=== PATIENT | female | born 1970 | race Caucasian/White ===

== ENCOUNTER → 2024-04-12 | Outpatient (CLI) | payer OTHER, SELFPAY ==
[2024-04-12 08:35] LABS: Alanine Aminotransferase 18 U/L (10-49); Albumin, Serum 4.2 gm/dL (3.5-5.0); Alkaline Phosphatase 98 U/L (46-116); Anion Gap 7 (7-16); Aspartate Amino Transferase 13 U/L (0-34); BUN/Creatinine Ratio 14 Ratio (12-20); Bilirubin,Direct 0.1 mg/dL (0.0-0.3); Bilirubin,Total 0.3 mg/dL (0.3-1.2); Blood Urea Nitrogen 15 mg/dL (9-23); Calcium 9.2 mg/dL (8.3-10.6); Carbon Dioxide 32.7 mMol/L (20.0-31.0); Cardiac Risk Estimate 3.2 RATIO (3.7-5.6); Chloride 101 mMol/L (98-107); Cholesterol 197 mg/dL (132-200); Creatinine (Component) 1.1 mg/dL (0.6-1.3); Ferritin 7 ng/mL (7.3-270.7); Glucose 129 mg/dL (74-106); HDL Cholesterol 61 mg/dL (40-60); LDL Cholesterol,Calculated 101 mg/dL (0-130); Osmolality,Calculated 284 (275-295); Phosphorous 4.1 mg/dL (2.4-5.1); Potassium 4.1 mMol/L (3.4-5.1); Sodium 141 mMol/L (136-145); Thyroid Stimulating Hormone 6.74 uIU/mL (0.55-4.78); Total Protein 6.3 gm/dL (5.7-8.2); Triglycerides 173 mg/dL (30-150); eGFR 60 See Note
[2024-04-12 08:50] LABS: Glucose Estimated Average 148 mg/dL (80-131); Hemoglobin A1C 6.8 % Hgb (4.8-6.0)
[2024-04-12 09:12] LABS: Basophils # (Auto) 0.1 Thou/mm3 (0.0-0.2); Basophils % (Auto) 1 % (0-2.5); Eosinophils # (Auto) 0.1 Thou/mm3 (0.0-0.5); Eosinophils % (Auto) 1 % (0-10); Hematocrit 43.1 % (36.0-46.0); Hemoglobin 13.8 g/dL (12.0-16.0); Immature Granulocytes % (Auto) 1 % (0-0); Immature Granulocytes Auto 0.08 Thou/mm3 (0.00-0.00); Lymphocytes # (Auto) 2.3 Thou/mm3 (1.0-4.8); Lymphocytes % (Auto) 24 % (10-50); Mean Corpuscular Volume 88 fL (80-100); Monocytes # (Auto) 0.6 Thou/mm3 (0.0-0.8); Monocytes % (Auto) 6 % (0-12); Neutrophils # (Auto) 6.3 Thou/mm3 (1.8-7.7); Neutrophils % (Auto) 68 % (37-80); Nucleated Red Blood Cell % 0 /100 WBC (0); Platelet Count 360 Thou/mm3 (140-440); RDW Standard Deviation 47.8 fL (36.4-46.3); Red Blood Count 4.92 Miln/mm3 (4.00-5.20); White Blood Count 9.4 Thou/mm3 (3.6-11.0)
== END | disposition home or self-care (01) ==
PROVIDERS: PCP Internal Medicine; Referring Provider Internal Medicine; Visit Provider Internal Medicine
DX: N30.11 Interstitial cystitis (chronic) with hematuria (principal); E11.9 Type 2 diabetes mellitus without complications; I10 Essential (primary) hypertension
CPT/HCPCS: 36415; 80048; 80061; 80069; 80076; 81001; 82728; 83036; 84100; 84443; 85025

== ENCOUNTER → 2024-07-05 | Outpatient (CLI) | payer OTHER, SELFPAY ==
[2024-07-05 08:44] LABS: Basophils # (Auto) 0.1 Thou/mm3 (0.0-0.2); Basophils % (Auto) 1 % (0-2.5); Eosinophils % (Auto) 0 % (0-10); Hematocrit 44.3 % (36.0-46.0); Immature Granulocytes % (Auto) 2 % (0-0); Lymphocytes # (Auto) 1.8 Thou/mm3 (1.0-4.8); Lymphocytes % (Auto) 17 % (10-50); Mean Corpuscular HGB Conc 31.6 g/dl (31.0-37.0); Mean Corpuscular Hemoglobin 27.9 pg (25.0-35.0); Mean Corpuscular Volume 88 fL (80-100); Monocytes # (Auto) 0.8 Thou/mm3 (0.0-0.8); Monocytes % (Auto) 7 % (0-12); Neutrophils # (Auto) 7.7 Thou/mm3 (1.8-7.7); Neutrophils % (Auto) 73 % (37-80); Nucleated Red Blood Cell % 0 /100 WBC (0); Platelet Count 376 Thou/mm3 (140-440); RDW Standard Deviation 50.9 fL (36.4-46.3); Red Blood Count 5.01 Miln/mm3 (4.00-5.20); White Blood Count 10.5 Thou/mm3 (3.6-11.0)
[2024-07-05 09:04] LABS: INR 0.9 (0.9-1.3); Partial Thromboplastin Time 22.8 Seconds (22.0-36.0); Prothrombin Time 9.8 Seconds (9.0-12.2)
== END | disposition home or self-care (01) ==
PROVIDERS: PCP Internal Medicine; Referring Provider Colon & Rectal Surgery; Visit Provider Colon & Rectal Surgery
DX: Z01.818 Encounter for other preprocedural examination (principal); Z86.0100 Personal history of colon polyps, unspecified
CPT/HCPCS: 36415; 85025; 85610; 85730

== ENCOUNTER → 2024-08-23 | Outpatient (CLI) | payer OTHER, SELFPAY ==
--- NOTE | 2024-08-23 | XR_ITS ---
Examination: Fingers, right hand first digit 3 views Technique: AP, oblique, lateral views right hand first digit 3 views. Exam date and time: August 23, 2024 0721 hours INDICATIONS: Injury to hand 6 weeks ago with first digit pain FINDINGS: No acute fracture No dislocation No foreign body IMPRESSION: No acute fracture
== END | disposition home or self-care (01) ==
LOC: CDIM 06:42
PROVIDERS: PCP Internal Medicine; Referring Provider Internal Medicine; Visit Provider Internal Medicine
DX: S69.91XA Unspecified injury of right wrist, hand and finger(s), initial encounter (principal); X58.XXXA Exposure to other specified factors, initial encounter
CPT/HCPCS: 73140

== ENCOUNTER → 2024-08-30 | Outpatient (CLI) | payer OTHER, SELFPAY ==
[2024-08-30 08:29] LABS: Basophils # (Auto) 0.1 Thou/mm3 (0.0-0.2); Basophils % (Auto) 1 % (0-2.5); Eosinophils # (Auto) 0.1 Thou/mm3 (0.0-0.5); Eosinophils % (Auto) 1 % (0-10); Immature Granulocytes % (Auto) 1 % (0-0); Immature Granulocytes Auto 0.09 Thou/mm3 (0.00-0.00); Lymphocytes # (Auto) 2.1 Thou/mm3 (1.0-4.8); Lymphocytes % (Auto) 23 % (10-50); Mean Corpuscular HGB Conc 31.8 g/dl (31.0-37.0); Mean Corpuscular Hemoglobin 28.1 pg (25.0-35.0); Mean Corpuscular Volume 88 fL (80-100); Monocytes # (Auto) 0.6 Thou/mm3 (0.0-0.8); Monocytes % (Auto) 6 % (0-12); Neutrophils # (Auto) 6.1 Thou/mm3 (1.8-7.7); Neutrophils % (Auto) 68 % (37-80); Nucleated Red Blood Cell % 0 /100 WBC (0); Platelet Count 346 Thou/mm3 (140-440); RDW Standard Deviation 50.3 fL (36.4-46.3); Red Blood Count 4.98 Miln/mm3 (4.00-5.20)
[2024-08-30 08:40] LABS: Alanine Aminotransferase 22 U/L (10-49); Albumin, Serum 4.3 gm/dL (3.5-5.0); Alkaline Phosphatase 90 U/L (46-116); Anion Gap 11 (7-16); BUN/Creatinine Ratio 11 Ratio (12-20); Bilirubin,Total 0.4 mg/dL (0.3-1.2); Blood Urea Nitrogen 12 mg/dL (9-23); Calcium 9.1 mg/dL (8.3-10.6); Calcium (Corrected) 9.1 mg/dL (8.5-10.1); Carbon Dioxide 29.7 mMol/L (20.0-31.0); Chloride 104 mMol/L (98-107); Creatinine (Component) 1.1 mg/dL (0.6-1.3); Free T4 (Free Thyroxine) 0.78 ng/dL (0.89-1.76); Globulin 2.1 gm/dL (2.3-3.5); Glucose 132 mg/dL (74-106); Osmolality,Calculated 290 (275-295); Potassium 4.1 mMol/L (3.4-5.1); Sodium 145 mMol/L (136-145); Thyroid Stimulating Hormone 4.39 uIU/mL (0.55-4.78); Total Protein 6.4 gm/dL (5.7-8.2); eGFR 59 See Note
[2024-08-30 08:44] LABS: Iron 51 mcg/dL (50-170); Percent Iron Saturation 12 % (20-55); Total Iron Binding Capacity 411 mcg/dL (250-425); Unsaturated Iron Binding 360 (225-295)
[2024-08-30 08:57] LABS: Glucose Estimated Average 166 mg/dL (80-131); Hemoglobin A1C 7.4 % Hgb (4.8-6.0)
== END | disposition home or self-care (01) ==
LOC: COPL 07:04
PROVIDERS: PCP Family Medicine; Referring Provider Registered Nurse; Visit Provider Registered Nurse
DX: E11.65 Type 2 diabetes mellitus with hyperglycemia (principal); E03.9 Hypothyroidism, unspecified; E61.1 Iron deficiency
CPT/HCPCS: 36415; 80053; 83036; 83540; 83550; 84439; 84443; 85025

== ENCOUNTER → 2024-09-03 | Outpatient (CLI) | payer OTHER, SELFPAY ==
--- NOTE | 2024-09-03 12:00 | XR_ITS ---
Examination: Breast ultrasound complete, bilateral Date and time of exam: September 03, 2024 1212 hours INDICATIONS: Mammogram October 10, 2023 large coarse calcifications both breasts Technique: Real-time grayscale ultrasonographic imaging bilateral breasts, including all 4 quadrants as well as nipple retroareolar and axillary regions. Findings: Sonographic images right breast 2:00 calcification 28 x 40 mm Sonographic images left breast 2:00 calcification 7 x 6 mm 9:00 calcified mass 18 x 11 mm 10:00 calcified mass 10 x 17 mm IMPRESSION: BI-RADS Category 3: Probably benign findings Recommend 3 month follow-up bilateral breast sonography to confirm stable calcifications both breasts
--- NOTE | 2024-09-03 13:15 | XR_ITS ---
Examination: Diagnostic digital mammography, bilateral Computer aided detection 3-D breast Tomosynthesis, bilateral Date and time of exam: September 03, 2024 1249 hours Compared to mammograms dating to March 26, 2016 INDICATIONS: Right breast pain 3 weeks Technique: Nonmagnified MLO, CC views of the breasts to been obtained, reconstructed from 3-D Tomosynthesis images. R2 computer aided detection program utilized for evaluation of suspicious masses and/or abnormal calcifications. 3-D Tomosynthesis images obtained. Findings: Scattered areas of fibroglandular density. Bilateral benign coarse calcifications No suspicious masses Impression: BI-RADS Category 2: Benign findings Recommend yearly follow-up mammography.
== END | disposition home or self-care (01) ==
LOC: CDIM 11:54
PROVIDERS: PCP Family Medicine; Referring Provider Registered Nurse; Visit Provider Registered Nurse
DX: R92.323 Mammographic fibroglandular density, bilateral breasts (principal); R92.1 Mammographic calcification found on diagnostic imaging of breast; N63.25 Unspecified lump in the left breast, overlapping quadrants; N63.22 Unspecified lump in the left breast, upper inner quadrant
CPT/HCPCS: 76641; 77062; 77066; G0279

== ENCOUNTER → 2024-10-06 | Outpatient (CLI) | payer OTHER, SELFPAY ==
[2024-10-06 08:46] LABS: Glucose Estimated Average 148 mg/dL (80-131); Hemoglobin A1C 6.8 % Hgb (4.8-6.0)
[2024-10-06 09:03] LABS: Vitamin D 25 Hydroxy Total 25.0 ng/mL (7.3-40.2)
== END | disposition home or self-care (01) ==
PROVIDERS: PCP Family Medicine; Referring Provider Family Medicine; Visit Provider Family Medicine
DX: E11.65 Type 2 diabetes mellitus with hyperglycemia (principal); E03.9 Hypothyroidism, unspecified; N95.1 Menopausal and female climacteric states; R79.9 Abnormal finding of blood chemistry, unspecified; E66.09 Other obesity due to excess calories
CPT/HCPCS: 36415; 82306; 82533; 82670; 83036; 84144; 84402; 84403

== ENCOUNTER → 2025-02-14 | Outpatient (CLI) | payer OTHER, SELFPAY ==
--- NOTE | 2025-02-14 09:15 | XR_ITS ---
EXAMINATION: Ultrasound soft tissue neck TECHNIQUE: Grayscale sonographic images soft tissue neck Date and time: February 14, 2025, 0935 hours, comparison thyroid sonogram January 31, 2025 INDICATIONS: History thyroid nodules January 31, 2025, patient states bilateral neck swelling 6 years FINDINGS: Multiple soft tissue right neck lymph nodes, the largest 11 x 10 mm Multiple soft tissue left neck lymph nodes, the largest 8 x 7 mm IMPRESSION: Nonspecific cervical lymphadenopathy as above Consider 6-month follow-up ultrasound soft tissue neck
== END | disposition home or self-care (01) ==
LOC: CDIM 09:13
PROVIDERS: PCP Family Medicine; Referring Provider Registered Nurse; Visit Provider Registered Nurse
DX: R59.0 Localized enlarged lymph nodes (principal)
CPT/HCPCS: 76536